=== PATIENT | male | born 1980 | race Caucasian/White ===

== ENCOUNTER 2019-09-10 17:10 | Emergency (ER) | payer OTHER ==
--- NOTE | 2019-09-10 18:51 | EDM.PDOC ---
ED HPI GENERAL MEDICAL PROBLEM - General Chief Complaint: Laceration Stated Complaint: RIGHT HAND LACERATION Time Seen by Provider: 09/10/19 18:15 Source of Information: Reports: Patient, RN Notes Reviewed History Limitations: Reports: No Limitations - History of Present Illness INITIAL COMMENTS - FREE TEXT/NARRATIVE: Patient is a 39-year-old male who presents to the ED for the evaluation of a laceration of the right hand. This laceration is linear, and roughly 3 cm in length. Patient notes that he was at work, at around 5 PM when he got his hand cut by a piece of metal. Patient notes his last tetanus booster was in 2010. There is a small amount of bleeding coming from the laceration, otherwise bleeding has been well controlled. He denies any numbness and tingling distal to the injury, he is able to wiggle his fingers. This laceration is located on the dorsum of the left hand near the base of the hand. He is still able to move his wrist at the wrist joint as well. He notes he is right-hand dominant. - Related Data Allergies Allergy/AdvReac Type Severity Reaction Status Date / Time No Known Allergies Allergy Verified 09/10/19 17:23 Home Meds: Home Meds . [No Known Home Meds] 09/10/19 [History] Past Medical History - Past Health History Medical/Surgical History: Denies Medical/Surgical History HEENT History: Reports: None Cardiovascular History: Reports: None Respiratory History: Reports: None Gastrointestinal History: Reports: None Genitourinary History: Reports: None Neurological History: Reports: None Psychiatric History: Reports: None Endocrine/Metabolic History: Reports: None Hematologic History: Reports: None Immunologic History: Reports: None Oncologic (Cancer) History: Reports: None Dermatologic History: Reports: None - Infectious Disease History Infectious Disease History: Reports: None - Past Surgical History Musculoskeletal Surgical History: Reports: Other (See Below) Other Musculoskeletal Surgeries/Procedures:: Right Hand Surgery Social & Family History - Tobacco Use Smoking Status *Q: Never Smoker - Caffeine Use Caffeine Use: Reports: None - Recreational Drug Use Recreational Drug Use: No ED ROS GENERAL - Review of Systems Review Of Systems: Comprehensive ROS is negative, except as noted in HPI. Skin: Reports: Wound (See HPI) Neurological: Denies: Numbness, Tingling ED EXAM, SKIN/RASH Exam: See Below Exam Limited By: No Limitations General Appearance: Alert, WD/WN, No Apparent Distress Respiratory/Chest: No Respiratory Distress, Lungs Clear, Normal Breath Sounds, No Accessory Muscle Use, Chest Non-Tender Cardiovascular: Normal Peripheral Pulses, Regular Rate, Rhythm, No Murmur Peripheral Pulses: 3+: Radial (L), Radial (R) Extremities: Normal Inspection, Normal Capillary Refill Neurological: Alert, Oriented, Normal Cognition, No Motor/Sensory Deficits Psychiatric: Normal Affect, Normal Mood Skin: Warm, Dry, Normal Color, No Rash, Wound/Incision (Linear 3 cm wound to the dorsum of the right hand near the base of the right hand. Actively bleeding , but controlled.) ED SKIN PROCEDURES - Laceration/Wound Repair Right Proximal Dorsal Hand Appearance: Superficial, Clean Distal NVT: Neuro & Vascular Intact, No Tendon Injury Anesthetic Type: Local Local Anesthesia - Lidocaine (Xylocaine): 1% Plain Local Anesthetic Volume: 5cc Skin Prep: Providone-Iodine (Betadine), Saline Exploration/Debridement/Repair: Wound Explored, In a Bloodless Field, Explored to Base, No Foreign Material Found Closed with: Sutures Lac/Wound length In cm: 3 Suture Size: 4-0 # of Sutures: 7 Suture Type: Prolene, Interrupted, Simple Sterile Dressing Applied: Nurse Tetanus Status Addressed: Yes Complications: No Course - Vital Signs Last Recorded V/S: Last Vital Signs Temp 98.1 F 09/10/19 17:21 Pulse 114 H 09/10/19 17:21 Resp 14 09/10/19 17:21 BP 159/97 H 09/10/19 17:21 Pulse Ox 98 09/10/19 17:21 - Orders/Labs/Meds Meds: Medications Discontinued Medications Generic Name Dose Route Start Last Admin Trade Name Keith PRN Reason Stop Dose Admin Lidocaine HCl 10 ml 09/10/19 18:52 09/10/19 19:57 Xylocaine 1% INJECT 09/10/19 18:53 10 ml ONETIME ONE Administration Departure - Departure Time of Disposition: 18:54 Disposition: Home, Self-Care 01 Condition: Fair Clinical Impression: Laceration of hand Qualifiers: Encounter type: initial encounter Foreign body presence: without foreign body Laterality: right Qualified Code(s): S61.411A - Laceration without foreign body of right hand, initial encounter - Discharge Information *PRESCRIPTION DRUG MONITORING PROGRAM REVIEWED*: No *COPY OF PRESCRIPTION DRUG MONITORING REPORT IN PATIENT ZHANG: No Instructions: Sutured Wound Care, [id number] Referrals: PCP,None [Primary Care Provider] - Forms: ED Department Discharge Additional Instructions: You have been evaluated in the ED for your laceration. Sutures will need to stay in for 10-14 days. 09/20/19 or 09/24/2019 You may return to the ED or clinic for removal. Please keep this area clean and dry, you may cleanse with regular soap and water. No vigorous scrubbing. Watch out for signs of infection like increased redness, swelling, pain at the laceration site, or if you should develop any fevers or chills. Please return to ED if your symptoms change or worsen. Sepsis Event Note - Evaluation Sepsis Screening Result: No Definite Risk - Focused Exam Vital Signs: Vital Signs Temp Pulse Resp BP Pulse Ox 09/10/19 17:21 98.1 F 114 H 14 159/97 H 98 Date Exam was Performed: 09/10/19 Time Exam was Performed: 19:57
[2019-09-10] MEDS ORDERED: Lidocaine 1% 10 ML MDV INJECT ONE (18:52)
== END 2019-09-10 20:27 | disposition home or self-care (01) ==
LOC: JD.ED 17:10
DX: S61.411A Laceration without foreign body of right hand, initial encounter (principal); W26.8XXA Contact with other sharp object(s), not elsewhere classified, initial encounter; Y92.89 Other specified places as the place of occurrence of the external cause; Y99.0 Civilian activity done for income or pay
CPT/HCPCS: 12002; 99282; J2001

== ENCOUNTER 2021-06-12 19:47 | Emergency (ER) | payer BC, OTHER ==
--- NOTE | 2021-06-12 20:31 | EDM.PDOC ---
ED HPI GENERAL MEDICAL PROBLEM - General Chief Complaint: Cardiovascular Problem Stated Complaint: LIGHTHEADED Time Seen by Provider: 06/12/21 20:28 - History of Present Illness INITIAL COMMENTS - FREE TEXT/NARRATIVE: 41-year-old male presents the emergency room with dizziness. The dizziness seems to come and go and is aggravated by change in position. Patient is Covid positive he has been symptomatic for about 7 days he has relatively mild symptoms he has a rare occasional cough. Has no shortness of breath or chest pain. No significant gastrointestinal symptoms. Several other family members have had it or get it over it as well. The patient was hoping to get the vaccine done but then he came down with the illness. The patient is optimistic and hoping to get the Regeneron treatment. 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 [No Known Home Meds] 09/10/19 [History] Past Medical History - Past Health History Medical/Surgical History: Denies Medical/Surgical History HEENT History: Reports: None Cardiovascular History: Reports: None Respiratory History: Reports: None Gastrointestinal History: Reports: None Genitourinary History: Reports: None Neurological History: Reports: None Psychiatric History: Reports: None Endocrine/Metabolic History: Reports: None Hematologic History: Reports: None Immunologic History: Reports: None Oncologic (Cancer) History: Reports: None Dermatologic History: Reports: None - Infectious Disease History Infectious Disease History: Reports: Novel Coronavirus - Past Surgical History Head Surgeries/Procedures: Reports: None Musculoskeletal Surgical History: Reports: Other (See Below) Other Musculoskeletal Surgeries/Procedures:: Right Hand Surgery Social & Family History - Caffeine Use Caffeine Use: Reports: None ED ROS GENERAL - Review of Systems Review Of Systems: See Below Constitutional: Reports: Fever, Weakness, Fatigue. Denies: Chills HEENT: Reports: No Symptoms Respiratory: Reports: No Symptoms Cardiovascular: Reports: No Symptoms GI/Abdominal: Reports: No Symptoms : Reports: No Symptoms Musculoskeletal: Reports: No Symptoms Skin: Reports: No Symptoms Neurological: Reports: Headache (She had a headache at the onset of this but this is resolved) ED EXAM, GENERAL - Physical Exam Exam: See Below Exam Limited By: No Limitations General Appearance: Alert, No Apparent Distress Eye Exam: Bilateral Eye: Normal Inspection Ears: Normal External Exam, Normal Canal, Hearing Grossly Normal, Normal TMs Nose: Normal Inspection, Normal Mucosa, No Blood Throat/Mouth: Normal Inspection, Normal Lips, Normal Teeth, Normal Gums, Normal Oropharynx, Normal Voice, No Airway Compromise Head: Atraumatic, Normocephalic Neck: Normal Inspection, Supple, Non-Tender, Full Range of Motion Respiratory/Chest: No Respiratory Distress, Lungs Clear, Normal Breath Sounds Cardiovascular: Regular Rate, Rhythm, No Edema, No Murmur GI/Abdominal: Non-Tender, No Organomegaly, No Distention Back Exam: Normal Inspection, Full Range of Motion. No: CVA Tenderness (L), CVA Tenderness (R) Extremities: Normal Inspection, No Pedal Edema Neurological: Alert, CN II-XII Intact, Normal Cognition, Normal Reflexes, No Motor/Sensory Deficits Skin Exam: Warm, Dry, Intact Course - Vital Signs Last Recorded V/S: Last Vital Signs Temp 36.2 C 06/12/21 20:19 Pulse 81 06/12/21 22:50 Resp 16 06/12/21 22:50 BP 110/83 06/12/21 22:50 Pulse Ox 95 06/12/21 22:50 - Orders/Labs/Meds Orders: Active Orders 24 hr Category Date Time Status Vital Signs [RC] Q15M Care 06/12/21 21:10 Active EPINEPHrine [Adrenalin] Med 06/12/21 21:09 Active 0.3 mg IM ONETIME PRN Famotidine [Pepcid] Med 06/12/21 21:09 Active 20 mg IVPUSH ONETIME PRN Sodium Chloride 0.9% [Saline Flush] Med 06/12/21 21:15 Active 30 ml FLUSH ASDIRECTED diphenhydrAMINE [Benadryl] Med 06/12/21 21:09 Active 50 mg IVPUSH ONETIME PRN methylPREDNISolone Sod Succ [Solu-MEDROL] Med 06/12/21 21:09 Active 125 mg IVPUSH ONETIME PRN Medication Orders Diphenhydramine HCl (Diphenhydramine 50 Mg/Ml Sdv) 50 mg IVPUSH ONETIME PRN PRN Reason: hypersensitivity reaction Epinephrine HCl (Epinephrine 1 Mg/Ml Sdv) 0.3 mg IM ONETIME PRN PRN Reason: hypersensitivity reaction Famotidine (Famotidine 20 Mg/2 Ml Sdv) 20 mg IVPUSH ONETIME PRN PRN Reason: hypersensitivity reaction Methylprednisolone Sodium Succinate (Methylprednisolone Sodium Succinate 125 Mg/2 Ml Sdv) 125 mg IVPUSH ONETIME PRN PRN Reason: hypersensitivity reaction Sodium Chloride (Sodium Chloride 0.9% 10 Ml Syringe) 30 ml FLUSH ASDIRECTED GIDEON Last Admin: 06/12/21 22:49 Dose: 30 ml Documented by: LEE Meds: Medications Generic Name Dose Route Start Last Admin Trade Name Freq PRN Reason Stop Dose Admin Diphenhydramine HCl 50 mg 06/12/21 21:09 Diphenhydramine 50 Mg/Ml Sdv IVPUSH ONETIME PRN hypersensitivity reaction Epinephrine HCl 0.3 mg 06/12/21 21:09 Epinephrine 1 Mg/Ml Sdv IM ONETIME PRN hypersensitivity reaction Famotidine 20 mg 06/12/21 21:09 Famotidine 20 Mg/2 Ml Sdv IVPUSH ONETIME PRN hypersensitivity reaction Methylprednisolone Sodium Succinate 125 mg 06/12/21 21:09 Methylprednisolone Sodium Succinate 125 Mg/2 Ml Sdv IVPUSH ONETIME PRN hypersensitivity reaction Sodium Chloride 30 ml 06/12/21 21:15 06/12/21 22:49 Sodium Chloride 0.9% 10 Ml Syringe FLUSH 30 ml ASDIRECTED GIDEON Administration Discontinued Medications Generic Name Dose Route Start Last Admin Trade Name Freq PRN Reason Stop Dose Admin CASIRIVIMAB/IMDEVIMAB 10 ml/ 110 mls @ 220 mls/hr 06/12/21 21:09 06/12/21 21:57 Sodium Chloride IV 06/12/21 21:38 220 mls/hr ONETIME ONE Administration - Re-Assessments/Exams Free Text/Narrative Re-Assessment/Exam: 06/12/21 21:03 I do not believe laboratory evaluation is indicated at this point the patient is really not having any significant chest pain breathing difficulties or shortness of breath he is basically here in hopes to get the Regeneron therapy. His BMI is 28.5 thus he is eligible. I spoke with the patient to provide information about REGEN-COV treatment. I offered them the Patient and Caregiver EUA REGEN-COV Fact Sheet to read and review. I stated the drug has been approved by an emergency use authorization (EUA} process and has not fully been FDA reviewed or approved. The patient meets the EUA requirements. I discussed there are other potential treatment options that are currently not FDA approved to treat COVID 19. Offered opportunity to ask questions and all questions were answered. The patient voiced understanding and agreed to proceed with treatment. 06/12/21 21:09 Patient's BMI is 28.5 he is eligible for the treatment 06/13/21 00:09 Patient is doing well at this time anticipate discharge Departure - Departure Time of Disposition: 00:10 Disposition: Home, Self-Care 01 Clinical Impression: COVID-19 Referrals: PCP,None [Primary Care Provider] - Forms: ED Department Discharge Additional Instructions: Return to the emergency room with any questions problems or worsening symptoms. Have someone pick you up some meclizine it is [id number] use 1/2-1 every 6-8 hours only if absolutely necessary to control your dizziness. Continue social isolation this should go on for 12 days after the onset of symptoms. Sepsis Event Note (ED) - Focused Exam Vital Signs: Vital Signs Temp Pulse Resp BP BP Pulse Ox 06/12/21 22:50 81 16 110/83 95 06/12/21 21:57 86 16 118/79 94 L 06/12/21 20:19 36.2 C 95 16 130/79 96 - My Orders Last 24 Hours: My Active Orders 06/12/21 21:09 EPINEPHrine [Adrenalin] 0.3 mg IM ONETIME PRN Famotidine [Pepcid] 20 mg IVPUSH ONETIME PRN diphenhydrAMINE [Benadryl] 50 mg IVPUSH ONETIME PRN methylPREDNISolone Sod Succ [Solu-MEDROL] 125 mg IVPUSH ONETIME PRN 06/12/21 21:10 Vital Signs [RC] Q15M 06/12/21 21:15 Sodium Chloride 0.9% [Saline Flush] 30 ml FLUSH ASDIRECTED - Assessment/Plan Last 24 Hours: My Active Orders 06/12/21 21:09 EPINEPHrine [Adrenalin] 0.3 mg IM ONETIME PRN Famotidine [Pepcid] 20 mg IVPUSH ONETIME PRN diphenhydrAMINE [Benadryl] 50 mg IVPUSH ONETIME PRN methylPREDNISolone Sod Succ [Solu-MEDROL] 125 mg IVPUSH ONETIME PRN 06/12/21 21:10 Vital Signs [RC] Q15M 06/12/21 21:15 Sodium Chloride 0.9% [Saline Flush] 30 ml FLUSH ASDIRECTED
[2021-06-12] MEDS ORDERED: diphenhydrAMINE 50 MG/ML SDV IVPUSH PRN (21:09)
[2021-06-12] MEDS ORDERED: methylPREDNISolone Sodium Succinate 125 MG/2 ML SDV IVPUSH PRN (21:09)
[2021-06-12] MEDS ORDERED: EPINEPHrine 1 MG/ML SDV IM PRN (21:09)
[2021-06-12] MEDS ORDERED: Famotidine 20 MG/2 ML SDV IVPUSH PRN (21:09)
[2021-06-12] MEDS ORDERED: Sodium Chloride 0.9% 10 ML Syringe FLUSH SCH (21:15)
== END 2021-06-13 00:30 | disposition home or self-care (01) ==
LOC: JD.ED 19:47
DX: U07.1 COVID-19 (principal)
CPT/HCPCS: 99283; M0243; Q0243; 99284

== ENCOUNTER 2021-06-15 15:43 | Emergency (ER) | payer BC ==
[2021-06-15] MEDS ORDERED: Albuterol 6.7 GM Inhaler INH ONE (18:40)
--- NOTE | 2021-06-15 19:06 | EDM.PDOC ---
ED HPI GENERAL MEDICAL PROBLEM - General Chief Complaint: Respiratory Problem Stated Complaint: COVID + SOB Time Seen by Provider: 06/15/21 17:44 Source of Information: Reports: Patient History Limitations: Reports: No Limitations - History of Present Illness INITIAL COMMENTS - FREE TEXT/NARRATIVE: The patient presents with a cough, shortness of breath and fatigue. Last week h e was diagnosed with COVID. He did get the Regeneron a few days ago. His oxygen saturations have been around 93%. The walk in clinic sent him here. He has no fever or chills any more. He has no nausea, vomiting or diarrhea. He has no medical problems. He does not smoke. Onset: Gradual Duration: Day(s): Severity: Moderate Improves with: Reports: None Worsens with: Reports: None Associated Symptoms: Reports: Cough, Shortness of Breath. Denies: Chest Pain, Fever/Chills, Headaches, Nausea/Vomiting - Related Data Allergies Allergy/AdvReac Type Severity Reaction Status Date / Time No Known Allergies Allergy Verified 06/15/21 16:32 Home Meds: Home Meds dexAMETHasone [Dexamethasone] 6 mg PO Q6H #12 tab 06/15/21 [Rx] Past Medical History - Past Health History Medical/Surgical History: Denies Medical/Surgical History HEENT History: Reports: None Cardiovascular History: Reports: None Respiratory History: Reports: None Gastrointestinal History: Reports: None Genitourinary History: Reports: None Neurological History: Reports: None Psychiatric History: Reports: None Endocrine/Metabolic History: Reports: None Hematologic History: Reports: None Immunologic History: Reports: None Oncologic (Cancer) History: Reports: None Dermatologic History: Reports: None - Infectious Disease History Infectious Disease History: Reports: Novel Coronavirus - Past Surgical History Head Surgeries/Procedures: Reports: None Musculoskeletal Surgical History: Reports: Other (See Below) Other Musculoskeletal Surgeries/Procedures:: Right Hand Surgery Social & Family History - Tobacco Use Tobacco Use Status *Q: Never Tobacco User Second Hand Smoke Exposure: No - Caffeine Use Caffeine Use: Reports: Coffee, Energy Drinks, Soda Caffeine Use Comment: 1/2 can daily - Recreational Drug Use Recreational Drug Use: No ED ROS GENERAL - Review of Systems Review Of Systems: See Below Constitutional: Reports: Malaise, Weakness, Fatigue. Denies: Fever, Chills HEENT: Reports: No Symptoms Respiratory: Reports: Shortness of Breath, Cough Cardiovascular: Reports: No Symptoms Endocrine: Reports: No Symptoms GI/Abdominal: Reports: No Symptoms : Reports: No Symptoms ED EXAM, GENERAL - Physical Exam Exam: See Below Exam Limited By: No Limitations General Appearance: Alert, No Apparent Distress Ears: Normal External Exam Nose: Normal Inspection Head: Atraumatic, Normocephalic Neck: Normal Inspection Respiratory/Chest: No Respiratory Distress, Lungs Clear, Normal Breath Sounds Cardiovascular: Regular Rate, Rhythm, No Edema, No Murmur GI/Abdominal: Soft, Non-Tender, No Organomegaly, No Mass Back Exam: Normal Inspection Extremities: Normal Inspection Course - Vital Signs Last Recorded V/S: Last Vital Signs Temp 100.4 F 06/15/21 17:50 Pulse 102 H 06/15/21 17:50 Resp 20 06/15/21 17:50 BP 128/81 06/15/21 17:50 Pulse Ox 93 L 06/15/21 17:50 - Orders/Labs/Meds Orders: Active Orders 24 hr Category Date Time Status RT Post Treatment Assessment [RC] Click to Edit Care 06/15/21 18:40 Active RT Pre-Treatment Assessment [RC] Click to Edit Care 06/15/21 18:40 Active Chest 1V Frontal [CR] Stat Exams 06/15/21 17:44 Taken Meds: Medications Discontinued Medications Generic Name Dose Route Start Last Admin Trade Name Keith PRN Reason Stop Dose Admin Albuterol 0 gm 06/15/21 18:40 06/15/21 18:50 Albuterol 6.7 Gm Inhaler INH 06/15/21 18:41 2 puff ONETIME ONE Administration - Re-Assessments/Exams Free Text/Narrative Re-Assessment/Exam: 06/15/21 19:04 I ordered a CXR and albuterol 2 puffs. His CXR shows some bilateral infiltrates consistent with COVID pneumonia. He did get the regeneron a few days ago. I will get him on dexamethason and albuterol inhaler. Departure - Departure Time of Disposition: 19:10 Disposition: Home, Self-Care 01 Condition: Good Clinical Impression: COVID-19, Pneumonia due to COVID-19 virus - Discharge Information *PRESCRIPTION DRUG MONITORING PROGRAM REVIEWED*: Not Applicable *COPY OF PRESCRIPTION DRUG MONITORING REPORT IN PATIENT ZHANG: Not Applicable Prescriptions: dexAMETHasone [Dexamethasone] 6 mg PO Q6H #12 tab Referrals: PCP,None [Primary Care Provider] - Charles Agrawal MD [Physician] - 1 Week Additional Instructions: Drink plenty of fluids. Take the dexamethasone 1 1/2 pills daily until gone. Use the inhaler 2 puffs every 6 hours as needed for shortness of breath. Take tylenol or motrin for any fever. Follow up with your provider or Dr Agrawal within the week. Please return if you are worse. Sepsis Event Note (ED) - Focused Exam Vital Signs: Vital Signs Temp Pulse Resp BP Pulse Ox 06/15/21 17:50 100.4 F 102 H 20 128/81 93 L - My Orders Last 24 Hours: My Active Orders 06/15/21 17:44 Chest 1V Frontal [CR] Stat 06/15/21 18:40 RT Post Treatment Assessment [RC] Click to Edit RT Pre-Treatment Assessment [RC] Click to Edit - Assessment/Plan Last 24 Hours: My Active Orders 06/15/21 17:44 Chest 1V Frontal [CR] Stat 06/15/21 18:40 RT Post Treatment Assessment [RC] Click to Edit RT Pre-Treatment Assessment [RC] Click to Edit
--- NOTE | 2021-06-16 07:17 | CR ---
Chest: Frontal view of the chest was obtained. Comparison: No prior chest imaging is available. Patchy increased density is seen within the right upper lung as well as mild patchy areas of increased density within other portions of the chest. Heart size and mediastinum are normal. Bony structures show nothing acute. Impression: 1. Findings are suspicious for mild COVID pneumonia. Diagnostic code #3
== END 2021-06-15 19:30 | disposition home or self-care (01) ==
LOC: JD.ED 15:43
DX: U07.1 COVID-19 (principal); J12.82 Pneumonia due to coronavirus disease 2019
CPT/HCPCS: 71045; 71045-26; 94640; 99283; 99284-25; A9270-GY

== ENCOUNTER 2021-06-18 20:24 | Emergency (ER) | payer BC ==
--- NOTE | 2021-06-18 21:07 | EDM.PDOC ---
ED HPI GENERAL MEDICAL PROBLEM - General Chief Complaint: Respiratory Problem Stated Complaint: COVID POSITIVE SOB Time Seen by Provider: 06/18/21 20:42 Source of Information: Reports: Patient History Limitations: Reports: No Limitations, Other (ED vital signs reveal a temp of 97.1, pulse of 126, respiratory rate of 20, blood pressure 153/89, pulse ox 90% on room air.) - History of Present Illness INITIAL COMMENTS - FREE TEXT/NARRATIVE: 41-year-old male presents the emergency department with complaints of worsening Covid symptoms and persistent shortness of breath and low oxygen saturations. Patient states he was diagnosed with Covid on June 07, 2021. He states he received Regeneron treatment on June 12, 2021. He then returned to the emergency department on June 15, 2021. At that time a chest x-ray was completed and he was started on dexamethasone and albuterol inhaler. He continues to take his dexamethasone and uses albuterol inhaler however states he still feels significantly short of breath with O2 saturations 88 to 90% on room air. - Related Data Allergies Allergy/AdvReac Type Severity Reaction Status Date / Time No Known Allergies Allergy Verified 06/15/21 16:32 Home Meds: Home Meds dexAMETHasone [Dexamethasone] 6 mg PO Q6H #12 tab 06/15/21 [Rx] Albuterol Sulfate [Albuterol Sulfate HFA] 2 puff INH ASDIRECTED 06/18/21 [History] Past Medical History - Past Health History Medical/Surgical History: Denies Medical/Surgical History HEENT History: Reports: None Cardiovascular History: Reports: None Respiratory History: Reports: None Gastrointestinal History: Reports: None Genitourinary History: Reports: None Neurological History: Reports: None Psychiatric History: Reports: None Endocrine/Metabolic History: Reports: None Hematologic History: Reports: None Immunologic History: Reports: None Oncologic (Cancer) History: Reports: None Dermatologic History: Reports: None - Infectious Disease History Infectious Disease History: Reports: Novel Coronavirus - Past Surgical History Head Surgeries/Procedures: Reports: None Musculoskeletal Surgical History: Reports: Other (See Below) Other Musculoskeletal Surgeries/Procedures:: Right Hand Surgery Social & Family History - Tobacco Use Tobacco Use Status *Q: Former Tobacco User Used Tobacco, but Quit: Yes Month/Year Tobacco Last Used: 9 yrs - Caffeine Use Caffeine Use: Reports: Soda Caffeine Use Comment: 1/2 can daily - Recreational Drug Use Recreational Drug Use: No ED ROS GENERAL - Review of Systems Review Of Systems: Comprehensive ROS is negative, except as noted in HPI. ED EXAM, GENERAL - Physical Exam Exam: See Below Exam Limited By: No Limitations General Appearance: Alert, WD/WN, No Apparent Distress Ears: Normal External Exam, Hearing Grossly Normal Nose: Normal Inspection Throat/Mouth: Normal Inspection, Normal Lips, Normal Voice, No Airway Compromise Head: Atraumatic Neck: Normal Inspection, Supple Respiratory/Chest: No Respiratory Distress, Normal Breath Sounds, No Accessory Muscle Use, Chest Non-Tender, Crackles (Scattered crackles noted posteriorly in all lobes) Cardiovascular: Normal Peripheral Pulses, Regular Rate, Rhythm, No Edema, No Murmur, Tachycardia Peripheral Pulses: 2+: Radial (L), Radial (R) GI/Abdominal: Normal Bowel Sounds, Soft, Non-Tender, No Distention (Male) Exam: Deferred Rectal (Males) Exam: Deferred Back Exam: Normal Inspection Extremities: Normal Inspection Neurological: Alert, Oriented, Normal Cognition Psychiatric: Normal Affect, Normal Mood Skin Exam: Warm, Dry, Intact, Normal Color, No Rash Lymphatic: No Adenopathy #1 Interpretation EKG Date: 06/18/21 Time: 21:10 Rhythm: NSR Rate (Beats/Min): 108 [place]: Normal P-Wave: Present QRS: Normal ST-T: Normal QT: Normal EKG Interpretation Comments: Per Dr. Mcclellan interpretation: Sinus tachycardia at 108 bpm; otherwise normal EKG Course - Vital Signs Text/Narrative:: As stated above, patient was diagnosed with Covid on the seventh of this month. He also received Regeneron treatment. He feels as though if he is not getting any better. The time of my exam the patient is tachycardic at rest. His O2 saturations are 90%. He does not appear to be dyspneic at rest. Lung sounds reveal crackles noted posteriorly to all lobes. It is quite possible that the patient could have a PE due to Covid. I have ordered labs to include a CBC, CMP, C-reactive protein, and a D-dimer. We will obtain a CT angio of the chest to rule out PE. Last Recorded V/S: Last Vital Signs Temp 97.1 F 06/18/21 20:39 Pulse 126 H 06/18/21 20:39 Resp 20 06/18/21 20:39 BP 153/89 H 06/18/21 20:39 Pulse Ox 90 L 06/18/21 20:39 - Orders/Labs/Meds Orders: Active Orders 24 hr Category Date Time Status CTA Chest W WO Contrast [Ang Chest] [CT] Stat Exams 06/18/21 20:56 Taken Sodium Chloride 0.9% [Normal Saline] 100 ml Med 06/18/21 22:15 Active IV ASDIRECTED Sodium Chloride 0.9% [Saline Flush] Med 06/18/21 20:56 Active 10 ml FLUSH ASDIRECTED PRN Saline Lock Insert [OM.PC] Stat Oth 06/18/21 20:56 Ordered Medication Orders Sodium Chloride (Normal Saline) 100 mls @ 60 mls/min IV ASDIRECTED GIDEON Last Admin: 06/18/21 22:15 Dose: 60 mls/min Documented by: SHAMIKA Sodium Chloride (Sodium Chloride 0.9% 10 Ml Syringe) 10 ml FLUSH ASDIRECTED PRN PRN Reason: Keep Vein Open Last Admin: 06/18/21 22:15 Dose: 10 ml Documented by: Admin: 06/18/21 21:22 Dose: 10 ml Documented by: FAUSTO Labs: Laboratory Tests 06/18/21 06/18/21 06/18/21 Range/Units 22:18 22:18 22:18 WBC 9.20 H (4.23-9.07) K/mm3 RBC 4.33 L (4.63-6.08) M/mm3 Hgb 12.6 L (13.7-17.5) gm/dl Hct 37.6 L (40.1-51.0) % MCV 86.8 (79.0-92.2) fl MCH 29.1 (25.7-32.2) pg MCHC 33.5 (32.2-35.5) g/dl RDW Std Deviation 39.9 (35.1-43.9) fL Plt Count 430 H (163-337) K/mm3 MPV 8.4 L (9.4-12.3) fl Neut % (Auto) 88.8 H (34.0-67.9) % Lymph % (Auto) 2.6 L (21.8-53.1) % [place] % (Auto) 6.0 (5.3-12.2) % Eos % (Auto) 0.2 L (0.8-7.0) Baso % (Auto) 0.2 (0.1-1.2) % Neut # (Auto) 8.17 H (1.78-5.38) K/mm3 Lymph # (Auto) 0.24 L (1.32-3.57) K/mm3 [place] # (Auto) 0.55 (0.30-0.82) K/mm3 Eos # (Auto) 0.02 L (0.04-0.54) K/mm3 Baso # (Auto) 0.02 (0.01-0.08) K/mm3 D-Dimer, Quantitative 1.61 H (0.19-0.50) mg/L Sodium 132 L (136-145) mEq/L Potassium 4.1 (3.5-5.1) mEq/L Chloride 101 (98-107) mEq/L Carbon Dioxide 24 (21-32) mEq/L Anion Gap 11.1 (5-15) BUN 20 H (7-18) mg/dL Creatinine 0.8 (0.7-1.3) mg/dL Est Cr Clr Drug Dosing 132.04 mL/min Estimated GFR (MDRD) > 60 (>60) mL/min BUN/Creatinine Ratio 25.0 H (14-18) Glucose 157 H (70-99) mg/dL Calcium 8.3 L (8.5-10.1) mg/dL Magnesium 2.3 (1.8-2.4) mg/dL Total Bilirubin 0.6 (0.2-1.0) mg/dL AST 211 H (15-37) U/L ALT 324 H (16-63) U/L Alkaline Phosphatase 63 (46-116) U/L C-Reactive Protein 7.6 H* (<1.0) mg/dL Total Protein 6.7 (6.4-8.2) g/dl Albumin 2.2 L (3.4-5.0) g/dl Globulin 4.5 gm/dL Albumin/Globulin Ratio 0.5 L (1-2) Meds: Medications Generic Name Dose Route Start Last Admin Trade Name Freq PRN Reason Stop Dose Admin Sodium Chloride 100 mls @ 60 mls/min 06/18/21 22:15 06/18/21 22:15 Normal Saline IV 60 mls/min ASDIRECTED GIDEON Administration Sodium Chloride 10 ml 06/18/21 20:56 06/18/21 22:15 Sodium Chloride 0.9% 10 Ml Syringe FLUSH 10 ml ASDIRECTED PRN Administration Keep Vein Open Discontinued Medications Generic Name Dose Route Start Last Admin Trade Name Keith PRN Reason Stop Dose Admin Iopamidol 100 ml 06/18/21 22:14 06/18/21 22:15 Iopamidol 755 Mg/Ml 100 Ml Bottle IVPUSH 06/18/21 22:15 100 ml ONETIME ONE Administration Sodium Chloride 10 ml 06/18/21 22:14 06/18/21 22:29 Sodium Chloride 0.9% 10 Ml Sdv FLUSH 06/18/21 22:15 10 ml ONETIME ONE Administration - Re-Assessments/Exams Free Text/Narrative Re-Assessment/Exam: 06/18/21 22:55 Hematology reveals a WBC of 9.20, hemoglobin 12.6, hematocrit 37.6, platelet count 430 D-dimer 1.61 Sodium 132, potassium 4.1, BUN 20, creatinine 0.8, glucose 157, AST 211, ALT 324, C-reactive protein 7.6, magnesium 2.3 vRad radiologist impression CTA of the chest with contrast: 1. No evidence of pulmonary embolism. 2. Findings consistent with multifocal COVID-19 pneumonia in both lungs. Patient O2 saturations are 93 to 94% on room air. He will be discharged home with recommendations he continue taking the dexamethasone as prescribed and use the albuterol inhaler. Departure - Departure Time of Disposition: 22:57 Disposition: Home, Self-Care 01 Condition: Good Clinical Impression: Pneumonia due to COVID-19 virus - Discharge Information Referrals: PCP,None [Primary Care Provider] - Forms: ED Department Discharge Additional Instructions: You were seen in the emergency department with increasing shortness of breath due to Covid symptoms. Evaluation in the emergency department included lab studies and a CT scan of the chest. Labs were essentially unremarkable. CT scan of the chest does not show any blood clots in the lungs. You have typical symptoms of Covid with viral pneumonia. Continue taking dexamethasone as prescribed as well as using albuterol inhaler. Also recommend using incentive spirometer and flutter valve as instructed by respiratory therapist. You likely will begin to feel better in about the next week or so. Should your condition worsen or change, do not hesitate returning to the emergency department. Sepsis Event Note (ED) - Focused Exam Vital Signs: Vital Signs Temp Pulse Resp BP Pulse Ox 06/18/21 20:39 97.1 F 126 H 20 153/89 H 90 L - My Orders Last 24 Hours: My Active Orders 06/18/21 20:56 CTA Chest W WO Contrast [Ang Chest] [CT] Stat Sodium Chloride 0.9% [Saline Flush] 10 ml FLUSH ASDIRECTED PRN Saline Lock Insert [OM.PC] Stat 06/18/21 22:15 Sodium Chloride 0.9% [Normal Saline] 100 ml IV ASDIRECTED - Assessment/Plan Last 24 Hours: My Active Orders 06/18/21 20:56 CTA Chest W WO Contrast [Ang Chest] [CT] Stat Sodium Chloride 0.9% [Saline Flush] 10 ml FLUSH ASDIRECTED PRN Saline Lock Insert [OM.PC] Stat 06/18/21 22:15 Sodium Chloride 0.9% [Normal Saline] 100 ml IV ASDIRECTED
[2021-06-18] MEDS: Sodium Chloride 0.9% 10 ML Syringe FLUSH PRN ×2 (21:22→22:15)
[2021-06-18] MEDS ORDERED: Iopamidol 755 Mg/ML 100 ML Bottle IVPUSH ONE (22:14)
[2021-06-18] MEDS ORDERED: Sodium Chloride 0.9% 10 ML SDV FLUSH ONE (22:14)
[2021-06-18] MEDS ORDERED: Sodium Chloride 0.9% 100 ML IV SCH (22:15)
--- NOTE | 2021-06-19 16:35 | CT ---
CT chest Technique: Multiple axial sections through the chest were obtained. Intravenous contrast was utilized. Study has been performed as a pulmonary angiogram study. Comparison: Prior chest x-ray of 06/15/21. Findings: Pulmonary arteries are fairly well opacified. No filling defects are seen to indicate a pulmonary embolism. Thoracic aorta shows no aneurysm. Mediastinum shows lymph nodes which are felt to be within normal limits. Slight lymph node is seen within the right hilar region. No axillary adenopathy is seen. Minimal pericardial effusion is seen which is most likely within normal limits. There is a small low density finding noted within the left lobe of the liver measuring 6 mm most likely representing a cyst. Lung window settings were reviewed which show patchy areas of consolidation within both sides of the chest most likely representing diffuse COVID pneumonia. Findings on chest CT are more prominent than on prior chest x-ray. Bone window settings were reviewed which show no acute osseous abnormality. Impression: 1. No findings of pulmonary embolism. 2. Findings compatible with moderately severe bilateral COVID pneumonia. 3. Minimal cyst within the left lobe of the liver. Diagnostic code #3 I agree with preliminary report from [facility], finalized on 06/18/21, 11:43 PM CDT, code 1
== END 2021-06-18 23:41 | disposition home or self-care (01) ==
LOC: JD.ED 20:24
DX: U07.1 COVID-19 (principal); J12.82 Pneumonia due to coronavirus disease 2019; Z87.891 Personal history of nicotine dependence
CPT/HCPCS: 36415; 71275; 80053; 83735; 85025; 85379; 86140; 93005; 94667; 99285; Q9967; 93010; 99284